=== PATIENT | male | born 2005 | race Caucasian/White ===

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

== ENCOUNTER 2023-07-28 03:26 | Emergency (ER) | payer BC ==
[2023-07-28 04:16] LABS: #Basophils 0.1 10x3/uL (0.0-0.2); #Eosinphils 0.2 10x3/uL (0.0-0.5); #Monocytes 1.4 10x3/uL (0.0-1.1); #Neutrophils 6.4 10x3/uL (1.5-8.4); %Basophils 0.5 % (0.0-2.0); %Eosinophils 2.1 % (0.0-6.0); %Lymphocytes 20.4 % (18.0-47.0); %Monocytes 13.4 % (0.0-10.0); %Neutrophils 62.5 % (40.0-75.0); Hematocrit 36.4 % (38.8-50.0); Mean Corpuscular HGB CONC 35.7 g/dL (32.0-36.0); Mean Corpuscular Hemoglobin 30.2 pg (27.0-33.0); Mean Corpuscular Volume 84.7 fl (81.2-95.1); Platelet Count 345 10x3/uL (150-450); RBC Distribution Width 11.9 % (11.5-14.5); White Blood Cell (WBC) Count 10.2 10x3/uL (3.5-10.5)
[2023-07-28] MEDS ORDERED: Ondansetron PF 4 MG/2 ML Vial ONE (04:25)
[2023-07-28] MEDS ORDERED: PROPOFOL 20 ML ONE (04:25)
[2023-07-28] MEDS ORDERED: Midazolam HCl 2 mg/2 ml Vial ONE (04:25)
[2023-07-28] MEDS ORDERED: fentaNYL 50 mcg/mL 1 mL Vial ONE (04:25)
[2023-07-28] MEDS ORDERED: Lidocaine 1% PF 5 ML VIAL ONE (04:25)
[2023-07-28] MEDS ORDERED: Succinylcholine 200 MG/10 ml SYRINGE FS ONE (04:25)
[2023-07-28] MEDS ORDERED: Dexamethasone 4 mg/ml Vial ONE (04:25)
[2023-07-28 04:31] LABS: ALT (SGPT) 8 U/L (8-55); AST (SGOT) 13 U/L (10-45); Albumin 4.1 g/dL (3.5-5.0); Alkaline Phosphatase 57 U/L (50-130); Anion Gap 15 mmol/L (10-20); BUN (Urea Nitrogen) 11 mg/dL (8.4-21.0); Bilirubin, Total 0.4 mg/dL (0.2-1.2); Calc. Creatinine Clearance 0 mL/min (70-130); Calcium 9.2 mg/dL (7.8-10.44); Carbon Dioxide 24 mmol/L (22-29); Chloride 93 mmol/L (98-107); Estimated GFR 131; Globulin 3.4 g/dL (2.4-3.5); Glucose 90 mg/dL (70-105); Potassium 3.4 mmol/L (3.5-5.1); Protein, Total 7.5 g/dL (6.0-8.3); Sodium 129 mmol/L (136-145)
[2023-07-28] MEDS ORDERED: Oxymetazoline HCl 0.05% ( 15 ML ) ONE (04:55)
[2023-07-28] MEDS ORDERED: EPINEPHrine 1 MG/ML VIAL ONE (04:56)
[2023-07-28] MEDS ORDERED: Tranexamic Acid 1,000 MG/10 ML VIAL ONE (05:13)
[2023-07-28] MEDS ORDERED: Meperidine HCl/PF 25 MG/ML VIAL ONE (05:55)
[2023-07-28] MEDS ORDERED: hydrALAZINE 20 MG/ML VIAL ONE (06:16)
[2023-07-28] MEDS ORDERED: Hydrocodone-Acetamin 15 ML UDCUP ONE (06:35)
== END 2023-07-28 04:52 | disposition admitted as inpatient to this hospital (09) ==
LOC: CSHERS 03:26
PROC: 0W33XZZ Control Bleeding in Oral Cavity and Throat, External Approach (ICD-10-PCS; principal; 2023-07-28)
DX: J95.830 Postprocedural hemorrhage of a respiratory system organ or structure following a respiratory system procedure (principal); F39 Unspecified mood [affective] disorder
CPT/HCPCS: 80053; 85025; 99284; J0171; J0360; J1100; J2175; J2250; J2405; J2704; J3010

== ENCOUNTER 2023-08-02 10:17 | Inpatient (IN) | payer BC ==
[2023-08-02] MEDS ORDERED: Oxymetazoline HCl 0.05% ( 15 ML ) ONE (10:39)
[2023-08-02] MEDS ORDERED: KETAMINE 100 MG/ML (5ML VIAL) ONE (10:52)
[2023-08-02] MEDS ORDERED: Midazolam HCl 5 mg/5 ml Vial ONE (10:53)
[2023-08-02] MEDS ORDERED: SUGAMMADEX SODIUM 200 MG/2 ML VIAL ONE (10:53)
[2023-08-02] MEDS ORDERED: Dexmedetomidine 200 MCG/2 ML VIAL ONE (10:53)
[2023-08-02] MEDS ORDERED: fentaNYL 50 mcg/mL 1 mL Vial ONE (10:56)
[2023-08-02] MEDS ORDERED: Lidocaine 2% PF 5 ML VIAL ONE (10:56)
[2023-08-02] MEDS ORDERED: Succinylcholine 200 MG/10 ml SYRINGE FS ONE (10:56)
[2023-08-02] MEDS ORDERED: PROPOFOL 20 ML ONE ×2 (10:56→11:39)
[2023-08-02] MEDS ORDERED: Dexamethasone 20 MG/5 ML VIAL ONE (10:56)
[2023-08-02] MEDS ORDERED: Rocuronium Bromide 10 MG/ML (10ML VIAL) ONE (10:56)
[2023-08-02] MEDS ORDERED: HYDROcodone/Acetaminophen 5/325 mg Tablet PO PRN (11:03)
[2023-08-02] MEDS ORDERED: Acetaminophen 325 MG TAB PO PRN (11:03)
[2023-08-02] MEDS ORDERED: Ondansetron PF 4 MG/2 ML Vial IVP PRN (11:03)
[2023-08-02] MEDS ORDERED: ePHEDrine Sulfate 50 MG/10 ML VIAL ONE (11:53)
[2023-08-02] MEDS ORDERED: Pantoprazole 40 MG VIAL IVP SCH (15:30)
[2023-08-02] MEDS ORDERED: hydrOXYzine 25 MG TAB PO PRN (17:19)
[2023-08-02] MEDS ORDERED: Ondansetron ODT 8 MG TAB PO PRN (18:04)
[2023-08-02 18:13] LABS: Hematocrit 37.2 % (38.8-50.0); Hemoglobin 12.9 g/dL (13.5-17.5); Mean Corpuscular HGB CONC 34.7 g/dL (32.0-36.0); Mean Corpuscular Hemoglobin 29.9 pg (27.0-33.0); Mean Corpuscular Volume 86.1 fl (81.2-95.1); Mean Platelet Volume 8.7 fl (7.4-10.4); Platelet Count 499 10x3/uL (150-450); RBC Distribution Width 11.9 % (11.5-14.5); Red Blood Cell (RBC) Count 4.32 10x6/uL (4.32-5.72); White Blood Cell (WBC) Count 25.5 10x3/uL (3.5-10.5)
[2023-08-02 18:15] LABS: MDiff Complete? YES
[2023-08-02] MEDS ORDERED: Sertraline 100 MG TAB PO SCH (18:15)
[2023-08-02] MEDS: Lactated Ringer's 1,000 ML IV SCH (18:19)
[2023-08-02 18:26] LABS: Anion Gap 18 mmol/L (10-20); BUN (Urea Nitrogen) 14 mg/dL (8.4-21.0); Calc. Creatinine Clearance 0 mL/min (70-130); Calcium 9.3 mg/dL (7.8-10.44); Carbon Dioxide 24 mmol/L (22-29); Chloride 101 mmol/L (98-107); Estimated GFR 128; Glucose 127 mg/dL (70-105); Iron 34 ug/dL (65-175); Iron Binding Capacity, Total 266 mcg/dL (261-462); Magnesium 1.9 mg/dL (1.7-2.2); Phosphorus 3.9 mg/dL (2.3-4.7); Potassium 4.1 mmol/L (3.5-5.1); Sodium 139 mmol/L (136-145)
[2023-08-02] MEDS: Nicotine 14 MG PATCH TD SCH (18:30)
[2023-08-02 19:29] LABS: Band 15 % (5-11); Lymphocytes 8 % (28-48); Monocytes 5 % (0-4); Neutrophil 71 % (31-61); Reactive Lymphocytes 1 % (0-10)
[2023-08-02 19:33] LABS: Microcytosis SLIGHT = 6-15 cells (100X) (0-5/hpf); RBC Morph Comment Within Normal Limits
[2023-08-02 19:35] LABS: Platelet Adequacy Comment Appears Increased
[2023-08-02] MEDS ORDERED: Famotidine/PF 20 mg/2ml Vial SLOW IVP SCH (21:00)
[2023-08-02] MEDS: busPIRone HCl 15 MG TAB PO SCH (21:37)
[2023-08-02] MEDS: Pantoprazole 40 MG VIAL IVP SCH (21:37)
[2023-08-03 03:12] LABS: #Monocytes 1.7 10x3/uL (0.0-1.1); #Neutrophils 15.1 10x3/uL (1.5-8.4); %Basophils 0.2 % (0.0-2.0); %Lymphocytes 10.7 % (18.0-47.0); Hematocrit 32.1 % (38.8-50.0); Hemoglobin 11.2 g/dL (13.5-17.5); Mean Corpuscular HGB CONC 34.9 g/dL (32.0-36.0); Mean Corpuscular Hemoglobin 30.4 pg (27.0-33.0); Mean Platelet Volume 8.8 fl (7.4-10.4); Platelet Count 496 10x3/uL (150-450); RBC Distribution Width 12.1 % (11.5-14.5); Red Blood Cell (RBC) Count 3.69 10x6/uL (4.32-5.72); White Blood Cell (WBC) Count 19.4 10x3/uL (3.5-10.5)
[2023-08-03 03:24] LABS: Anion Gap 15 mmol/L (10-20); BUN (Urea Nitrogen) 18 mg/dL (8.4-21.0); Calc. Creatinine Clearance 0 mL/min (70-130); Carbon Dioxide 24 mmol/L (22-29); Chloride 103 mmol/L (98-107); Estimated GFR 129; Glucose 108 mg/dL (70-105); Potassium 4.3 mmol/L (3.5-5.1); Sodium 138 mmol/L (136-145)
[2023-08-03] MEDS ORDERED: Pantoprazole 40 MG VIAL IVP SCH (03:30)
[2023-08-03] MEDS ORDERED: Lorazepam 2 MG/ML VIAL SLOW IVP SCH (04:00)
[2023-08-03 07:50] LABS: Hematocrit 28.5 % (38.8-50.0)
[2023-08-03] MEDS: Pantoprazole 40 MG VIAL IVP SCH (08:37)
[2023-08-03] MEDS: Sertraline 100 MG TAB PO SCH (08:39)
[2023-08-03] MEDS: busPIRone HCl 15 MG TAB PO SCH ×2 (08:39→20:28)
[2023-08-03] MEDS: Lactated Ringer's 1,000 ML IV SCH ×3 (08:42→20:14)
[2023-08-03] MEDS ORDERED: PROPOFOL 40 ML ONE (09:21)
[2023-08-03 09:27] VITALS: BMI 18.1
[2023-08-03] MEDS ORDERED: Glycopyrrolate 0.2 MG/ML 5 ML SYRINGE ONE (09:35)
[2023-08-03] MEDS ORDERED: PROPOFOL 20 ML ONE ×3 (09:49→10:17)
[2023-08-03] MEDS ORDERED: PHENYLEPHRINE-NS 100 MCG/ML 10 ML SYRINGE ONE (10:04)
[2023-08-03 12:44] LABS: Hematocrit 23.9 % (38.8-50.0); Hemoglobin 8.2 g/dL (13.5-17.5)
[2023-08-03] MEDS ORDERED: Naloxone HCl 0.4 mg/ml Vial IV PRN (15:18)
[2023-08-03] MEDS ORDERED: Morphine 4 MG/ML VIAL ONE (15:20)
[2023-08-03] MEDS ORDERED: Morphine 4 MG/ML VIAL SLOW IVP SCH (15:45)
[2023-08-03] MEDS ORDERED: Pantoprazole 80 MG in Sodium Chloride 0.9% 100 ML IVPB SCH (16:30)
[2023-08-03] MEDS: Morphine 2 MG/ML VIAL SLOW IVP PRN ×2 (18:02→22:20)
[2023-08-03] MEDS: Nicotine 14 MG PATCH TD SCH (18:04)
[2023-08-03] MEDS ORDERED: Iron, Sodium Ferric Gluconate 250 MG in Sodium Chloride 0.9% 250 ML 250 ML IVPB SCH (21:00)
[2023-08-03 22:39] LABS: Hematocrit 22.4 % (38.8-50.0); Hemoglobin 7.7 g/dL (13.5-17.5)
[2023-08-04 03:48] LABS: Anion Gap 11 mmol/L (10-20); BUN (Urea Nitrogen) 17 mg/dL (8.4-21.0); Calc. Creatinine Clearance 134 mL/min (70-130); Calcium 8.2 mg/dL (7.8-10.44); Carbon Dioxide 25 mmol/L (22-29); Chloride 105 mmol/L (98-107); Estimated GFR 134; Glucose 89 mg/dL (70-105); Potassium 3.8 mmol/L (3.5-5.1); Sodium 137 mmol/L (136-145)
[2023-08-04 03:58] LABS: Hematocrit 21.9 % (38.8-50.0); Hemoglobin 7.5 g/dL (13.5-17.5); Mean Corpuscular HGB CONC 34.2 g/dL (32.0-36.0); Mean Corpuscular Hemoglobin 30.2 pg (27.0-33.0); Mean Corpuscular Volume 88.3 fl (81.2-95.1); Mean Platelet Volume 9.1 fl (7.4-10.4); Platelet Count 353 10x3/uL (150-450); RBC Distribution Width 12.5 % (11.5-14.5); Red Blood Cell (RBC) Count 2.48 10x6/uL (4.32-5.72); White Blood Cell (WBC) Count 11.6 10x3/uL (3.5-10.5)
[2023-08-04 04:11] LABS: MDiff Complete? YES
[2023-08-04 05:25] LABS: Band 9 % (5-11); Eosinophils 3 % (0-10); Lymphocytes 30 % (28-48); Metamyelocyte 3 % (0-0); Monocytes 1 % (0-4); Neutrophil 51 % (31-61); Promyelocytes 3 % (0-0)
[2023-08-04 05:29] LABS: Microcytosis SLIGHT = 6-15 cells (100X) (0-5/hpf)
[2023-08-04 05:30] LABS: Platelet Adequacy Comment Appears Adequate
[2023-08-04] MEDS: Sertraline 100 MG TAB PO SCH (08:14)
[2023-08-04] MEDS: busPIRone HCl 15 MG TAB PO SCH ×2 (08:14→21:09)
[2023-08-04] MEDS: Morphine 2 MG/ML VIAL SLOW IVP PRN ×2 (08:14→12:30)
[2023-08-04] MEDS ORDERED: Pantoprazole 40 MG VIAL IVP SCH (11:15)
[2023-08-04] MEDS: HYDROcodone/Acetaminophen 10/325 mg Tablet PO PRN ×2 (16:57→21:37)
[2023-08-04] MEDS: Nicotine 14 MG PATCH TD SCH (18:00)
[2023-08-04] MEDS ORDERED: Iron, Sodium Ferric Gluconate 250 MG in Sodium Chloride 0.9% 250 ML 250 ML IVPB SCH (19:00)
[2023-08-04] MEDS: Pantoprazole 40 MG VIAL IVP SCH (21:09)
[2023-08-04] MEDS: Lactated Ringer's 1,000 ML IV SCH (22:56)
[2023-08-05] MEDS: HYDROcodone/Acetaminophen 10/325 mg Tablet PO PRN ×5 (02:24→23:48)
[2023-08-05 04:33] LABS: Anion Gap 14 mmol/L (10-20); BUN (Urea Nitrogen) 9 mg/dL (8.4-21.0); Calc. Creatinine Clearance 127 mL/min (70-130); Calcium 8.6 mg/dL (7.8-10.44); Carbon Dioxide 27 mmol/L (22-29); Chloride 102 mmol/L (98-107); Estimated GFR 132; Glucose 96 mg/dL (70-105); Potassium 3.3 mmol/L (3.5-5.1); Sodium 140 mmol/L (136-145)
[2023-08-05 04:46] LABS: Hematocrit 22.6 % (38.8-50.0); Hemoglobin 7.7 g/dL (13.5-17.5); Mean Corpuscular HGB CONC 34.1 g/dL (32.0-36.0); Mean Corpuscular Volume 87.9 fl (81.2-95.1); Mean Platelet Volume 9.3 fl (7.4-10.4); Platelet Count 419 10x3/uL (150-450); RBC Distribution Width 12.6 % (11.5-14.5); Red Blood Cell (RBC) Count 2.57 10x6/uL (4.32-5.72); White Blood Cell (WBC) Count 10.7 10x3/uL (3.5-10.5)
[2023-08-05 04:58] LABS: MDiff Complete? YES
[2023-08-05 06:21] LABS: Lymphocytes 44 % (28-48); Metamyelocyte 6 % (0-0); Monocytes 10 % (0-4); Neutrophil 37 % (31-61); Promyelocytes 3 % (0-0)
[2023-08-05 06:25] LABS: Microcytosis SLIGHT = 6-15 cells (100X) (0-5/hpf)
[2023-08-05 06:26] LABS: Platelet Adequacy Comment Appears Adequate
[2023-08-05] MEDS ORDERED: Potassium Chloride 20 MEQ TAB PO SCH (09:45)
[2023-08-05] MEDS: busPIRone HCl 15 MG TAB PO SCH ×2 (09:48→21:04)
[2023-08-05] MEDS: Pantoprazole 40 MG VIAL IVP SCH ×2 (09:49→21:03)
[2023-08-05] MEDS: Sertraline 100 MG TAB PO SCH (09:49)
[2023-08-05] MEDS: Lactated Ringer's 1,000 ML IV SCH (12:53)
[2023-08-05] MEDS: Nicotine 14 MG PATCH TD SCH (17:39)
[2023-08-05] MEDS: Iron, Sodium Ferric Gluconate 250 MG in Sodium Chloride 0.9% 250 ML 250 ML IVPB SCH (21:42)
[2023-08-06 04:01] LABS: #Basophils 0.1 10x3/uL (0.0-0.2); #Eosinphils 0.3 10x3/uL (0.0-0.5); #Monocytes 0.8 10x3/uL (0.0-1.1); #Neutrophils 4.9 10x3/uL (1.5-8.4); %Basophils 0.9 % (0.0-2.0); %Eosinophils 3.4 % (0.0-6.0); %Monocytes 8.5 % (0.0-10.0); %Neutrophils 52.9 % (40.0-75.0); Hemoglobin 7.8 g/dL (13.5-17.5); Mean Corpuscular HGB CONC 33.9 g/dL (32.0-36.0); Mean Corpuscular Hemoglobin 29.9 pg (27.0-33.0); Mean Corpuscular Volume 88.1 fl (81.2-95.1); Platelet Count 435 10x3/uL (150-450); RBC Distribution Width 12.6 % (11.5-14.5); Red Blood Cell (RBC) Count 2.61 10x6/uL (4.32-5.72); White Blood Cell (WBC) Count 9.3 10x3/uL (3.5-10.5)
[2023-08-06 04:11] LABS: Anion Gap 11 mmol/L (10-20); BUN (Urea Nitrogen) 8 mg/dL (8.4-21.0); Calc. Creatinine Clearance 124 mL/min (70-130); Calcium 8.9 mg/dL (7.8-10.44); Carbon Dioxide 28 mmol/L (22-29); Chloride 103 mmol/L (98-107); Estimated GFR 131; Glucose 96 mg/dL (70-105); Potassium 3.7 mmol/L (3.5-5.1); Sodium 138 mmol/L (136-145)
[2023-08-06] MEDS: Lactated Ringer's 1,000 ML IV SCH (06:31)
[2023-08-06] MEDS: Pantoprazole 40 MG VIAL IVP SCH ×2 (10:00→22:13)
[2023-08-06] MEDS: busPIRone HCl 15 MG TAB PO SCH ×2 (10:00→22:13)
[2023-08-06] MEDS: Sertraline 100 MG TAB PO SCH (10:00)
[2023-08-06] MEDS: HYDROcodone/Acetaminophen 10/325 mg Tablet PO PRN ×2 (10:32→19:22)
[2023-08-06] MEDS: Nicotine 14 MG PATCH TD SCH (18:21)
[2023-08-06] MEDS: Iron, Sodium Ferric Gluconate 250 MG in Sodium Chloride 0.9% 250 ML 250 ML IVPB SCH (22:14)
[2023-08-07] MEDS: HYDROcodone/Acetaminophen 10/325 mg Tablet PO PRN ×2 (00:34→09:50)
[2023-08-07 03:42] LABS: #Basophils 0.1 10x3/uL (0.0-0.2); #Eosinphils 0.3 10x3/uL (0.0-0.5); #Monocytes 0.7 10x3/uL (0.0-1.1); #Neutrophils 6.4 10x3/uL (1.5-8.4); %Basophils 0.5 % (0.0-2.0); %Eosinophils 2.6 % (0.0-6.0); %Lymphocytes 25.7 % (18.0-47.0); Hematocrit 23.4 % (38.8-50.0); Hemoglobin 7.9 g/dL (13.5-17.5); Mean Corpuscular HGB CONC 33.8 g/dL (32.0-36.0); Mean Corpuscular Hemoglobin 29.8 pg (27.0-33.0); Mean Corpuscular Volume 88.3 fl (81.2-95.1); Mean Platelet Volume 8.9 fl (7.4-10.4); Platelet Count 490 10x3/uL (150-450); RBC Distribution Width 13.2 % (11.5-14.5); Red Blood Cell (RBC) Count 2.65 10x6/uL (4.32-5.72); White Blood Cell (WBC) Count 10.6 10x3/uL (3.5-10.5)
[2023-08-07 03:51] LABS: Anion Gap 14 mmol/L (10-20); BUN (Urea Nitrogen) 8 mg/dL (8.4-21.0); Calc. Creatinine Clearance 114 mL/min (70-130); Calcium 8.9 mg/dL (7.8-10.44); Carbon Dioxide 27 mmol/L (22-29); Chloride 102 mmol/L (98-107); Estimated GFR 127; Glucose 88 mg/dL (70-105); Potassium 3.9 mmol/L (3.5-5.1); Sodium 139 mmol/L (136-145)
[2023-08-07] MEDS ORDERED: Polyethylene Glycol 3350 17 GM Packet PO SCH (09:00)
[2023-08-07 09:10] VITALS: BP 104/50; TEMP 98.4
[2023-08-07] MEDS: busPIRone HCl 15 MG TAB PO SCH (09:37)
[2023-08-07] MEDS: Sertraline 100 MG TAB PO SCH (09:37)
[2023-08-07] MEDS: Pantoprazole 40 MG VIAL IVP SCH (09:38)
== END 2023-08-07 11:55 | disposition home or self-care (01) | DRG 378 ==
LOC: CSHERS 10:17 → CSHTELE 13:42
PROVIDERS: ADMIT Otolaryngology Plastic Surgery within the Head & Neck; ATTEND Internal Medicine
PROC: 0DB98ZX Excision of Duodenum, Via Natural or Artificial Opening Endoscopic, Diagnostic (ICD-10-PCS; principal; 2023-08-02)
PROC: 0DB78ZX Excision of Stomach, Pylorus, Via Natural or Artificial Opening Endoscopic, Diagnostic (ICD-10-PCS; 2023-08-02)
PROC: BD4CZZZ Ultrasonography of Rectum (ICD-10-PCS; 2023-08-02)
PROC: 3E033XZ Introduction of Vasopressor into Peripheral Vein, Percutaneous Approach (ICD-10-PCS; 2023-08-02)
PROC: 0WJ3XZZ Inspection of Oral Cavity and Throat, External Approach (ICD-10-PCS; 2023-08-02)
DX: K26.4 Chronic or unspecified duodenal ulcer with hemorrhage (principal); D62 Acute posthemorrhagic anemia; Z68.1 Body mass index [BMI] 19.9 or less, adult; J36 Peritonsillar abscess; K25.4 Chronic or unspecified gastric ulcer with hemorrhage; F41.8 Other specified anxiety disorders; F90.9 Attention-deficit hyperactivity disorder, unspecified type; E87.6 Hypokalemia; R63.4 Abnormal weight loss; K00.0 Anodontia; K52.9 Noninfective gastroenteritis and colitis, unspecified; R11.2 Nausea with vomiting, unspecified; F12.10 Cannabis abuse, uncomplicated; F17.290 Nicotine dependence, other tobacco product, uncomplicated; R63.0 Anorexia; Z88.8 Allergy status to other drugs, medicaments and biological substances; F32.9 Major depressive disorder, single episode, unspecified; R10.9 Unspecified abdominal pain; D50.9 Iron deficiency anemia, unspecified; Z71.6 Tobacco abuse counseling
CPT/HCPCS: 36415; 36416; 80048; 82728; 83540; 83550; 83735; 84100; 85025; 86850; 86900; 86901; 87324; 87449; 88305; 93005; 93010; C9113; J1100; J2001; J2060; J2250; J2270; J2272; J2405; J2704; J2916; J3010; J3490; J7050; J7120